=== PATIENT | male | born 1965 | race Caucasian/White ===

== ENCOUNTER 2025-05-11 00:30 | Emergency (ER) | payer OTHER ==
[~2025-05-11] VITALS: Ht 175.3 cm; Wt 79.4 kg
== END 2025-05-11 01:00 | disposition home or self-care (01) ==
LOC: ER 00:30
DX: Z76.0 Encounter for issue of repeat prescription (principal); I10 Essential (primary) hypertension
CPT/HCPCS: 99281

== ENCOUNTER 2025-05-12 23:01 | Emergency (ER) | payer OTHER ==
[~2025-05-12] VITALS: Ht 175.3 cm; Wt 78.0 kg
[2025-05-13] MEDS ORDERED: CARVEDILOL6.25 MG PO ×2 (00:07→00:14)
[2025-05-13] MEDS ORDERED: LOSARTAN POTASS25 M2 PO ×2 (00:10→00:14)
[2025-05-13] MEDS ORDERED: JANTOVEN6 MG PO ×2 (00:10→00:14)
[2025-05-13] MEDS ORDERED: ROSUVASTATIN CA40 MG PO ×2 (00:11→00:14)
[2025-05-13] MEDS ORDERED: METFORMIN HCL500 M2 PO ×2 (00:13→00:14)
[2025-05-13] MEDS ORDERED: AMOCLA875 PO (00:14)
== END 2025-05-13 00:38 | disposition home or self-care (01) ==
LOC: ER 23:01
DX: Z76.0 Encounter for issue of repeat prescription (principal); S51.852D Open bite of left forearm, subsequent encounter; H53.9 Unspecified visual disturbance; I10 Essential (primary) hypertension; E11.9 Type 2 diabetes mellitus without complications; W54.0XXD Bitten by dog, subsequent encounter; Z96.649 Presence of unspecified artificial hip joint; Z86.73 Personal history of transient ischemic attack (TIA), and cerebral infarction without residual deficits; Z95.2 Presence of prosthetic heart valve
CPT/HCPCS: 99283

== ENCOUNTER 2025-05-28 02:21 | Emergency (ER) | payer OTHER ==
[~2025-05-28] VITALS: Ht 175.3 cm; Wt 77.1 kg
[~2025-05-28 02:21] MED LIST: AMOCLA875 PO; CARVEDILOL6.25 MG PO; CEPH500 PO; Coreg6.25 MG PO; Crestor40 MG PO; JANTOVEN6 MG PO; LOSA25 PO; LOSARTAN POTASS25 M2 PO; METF500 PO; METFORMIN HCL500 M2 PO; ROSUVASTATIN CA40 MG PO; WARF6 PO
[2025-05-28] MEDS ORDERED: ALLOPURINOL100 M1 PO (02:42)
[2025-05-28] MEDS ORDERED: ACYC200 PO (02:42)
[2025-05-28] MEDS ORDERED: PANTOPRAZOLE SO40 M2 PO (02:43)
[2025-05-28] MEDS ORDERED: TRAZ50 PO (02:43)
[2025-05-28] MEDS ORDERED: FENOFIBRATE145 MG PO (02:43)
[2025-05-28] MEDS ORDERED: TAMSULOSIN HCL0.4 M1 PO (02:43)
[2025-05-28] MEDS ORDERED: NEURONTIN300 MG PO (02:43)
[2025-05-28] MEDS ORDERED: PIOGLITAZONE HC15 MG PO (02:44)
[2025-05-28] MEDS ORDERED: EZETIMIBE10 M6 PO (02:44)
== END 2025-05-28 04:30 | disposition home or self-care (01) ==
LOC: ER 02:21
DX: S00.12XA Contusion of left eyelid and periocular area, initial encounter (principal); S00.11XA Contusion of right eyelid and periocular area, initial encounter; S00.81XA Abrasion of other part of head, initial encounter; S00.31XA Abrasion of nose, initial encounter; E11.9 Type 2 diabetes mellitus without complications; I10 Essential (primary) hypertension; E78.5 Hyperlipidemia, unspecified; Z95.2 Presence of prosthetic heart valve; Z96.649 Presence of unspecified artificial hip joint; Z86.73 Personal history of transient ischemic attack (TIA), and cerebral infarction without residual deficits; Z88.8 Allergy status to other drugs, medicaments and biological substances; Z79.01 Long term (current) use of anticoagulants; Z79.84 Long term (current) use of oral hypoglycemic drugs; Z79.899 Other long term (current) drug therapy; W18.30XA Fall on same level, unspecified, initial encounter
CPT/HCPCS: 70450; 70486; 99284-25; A9270

== ENCOUNTER 2025-05-28 06:27 | Emergency (ER) | payer OTHER ==
[~2025-05-28] VITALS: Ht 175.3 cm; Wt 72.6 kg
[~2025-05-28 06:27] MED LIST changes: +ACYC200 PO; +ALLOPURINOL100 M1 PO; +EZETIMIBE10 M6 PO; +FENOFIBRATE145 MG PO; +NEURONTIN300 MG PO; +PANTOPRAZOLE SO40 M2 PO; +PIOGLITAZONE HC15 MG PO; +TAMSULOSIN HCL0.4 M1 PO; +TRAZ50 PO
== END 2025-05-28 09:44 | disposition home or self-care (01) ==
LOC: ER 06:27
DX: S05.11XA Contusion of eyeball and orbital tissues, right eye, initial encounter (principal); S30.810A Abrasion of lower back and pelvis, initial encounter; E11.9 Type 2 diabetes mellitus without complications; I10 Essential (primary) hypertension; Z86.73 Personal history of transient ischemic attack (TIA), and cerebral infarction without residual deficits; Y04.8XXA Assault by other bodily force, initial encounter; Z79.01 Long term (current) use of anticoagulants; Z79.899 Other long term (current) drug therapy; Z88.8 Allergy status to other drugs, medicaments and biological substances
CPT/HCPCS: 70450; 70486; 71046; 82947; 99284-25

== ENCOUNTER 2025-05-29 07:53 | Emergency (ER) | payer OTHER ==
[~2025-05-29] VITALS: Ht 175.3 cm; Wt 81.7 kg
== END 2025-05-29 13:30 | disposition home or self-care (01) ==
LOC: ER 07:53
DX: T40.411A Poisoning by fentanyl or fentanyl analogs, accidental (unintentional), initial encounter (principal); E11.9 Type 2 diabetes mellitus without complications; I10 Essential (primary) hypertension; Z86.73 Personal history of transient ischemic attack (TIA), and cerebral infarction without residual deficits; Z59.89 Other problems related to housing and economic circumstances; Z79.899 Other long term (current) drug therapy
CPT/HCPCS: 99284

== ENCOUNTER 2025-05-29 20:06 | Inpatient (IN) | payer OTHER ==
[~2025-05-29] VITALS: Ht 175.3 cm; Wt 81.7 kg
[2025-05-29 21:21] LABS: BASOPHILS ABSOLUTE AUTO 0.05 K/mm3 (0.00-0.23); BASOPHILS PERCENT AUTO 1 % (0-2); EOSINOPHILS ABSOLUTE AUTO 0.28 K/mm3 (0.00-0.68); EOSINOPHILS PERCENT AUTO 4 % (0-6); Hematocrit 33.1 % (37.0-53.0); Hemoglobin 11.0 g/dL (13.5-17.5); IMMATURE GRAN ABSOLUTE AUTO 0.02 K/mm3 (0.00-0.10); IMMATURE GRAN PERCENT AUTO 0 % (0-1); LYMPHOCYTES ABSOLUTE AUTO 1.13 K/mm3 (0.84-5.20); LYMPHOCYTES PERCENT AUTO 15 % (21-46); MONOCYTES ABSOLUTE AUTO 0.45 K/mm3 (0.16-1.47); MONOCYTES PERCENT AUTO 6 % (4-13); Mean Corpuscular HGB Conc 33.2 g/dL (31.5-36.5); Mean Corpuscular Volume 90 fL (80-100); NEUTROPHILS ABSOLUTE AUTO 5.48 K/mm3 (1.96-9.15); NEUTROPHILS PERCENT AUTO 74 % (41-73); NRBC ABSOLUTE 0.00 K/mm3 (0.00-0.02); NRBC Auto 0.0 /100 WBC (0.0-0.2); Platelet Count 273 K/mm3 (150-400); RDW Coefficient Variation 13.7 % (11.7-14.2); RDW Standard Deviation 45.6 fL (35.1-46.3)
[2025-05-29 21:38] LABS: Prothrombin Time Results 10.7 Sec (9.7-11.5)
[2025-05-29 21:41] LABS: Alanine Aminotransfer (ALT/SGP 47.0 U/L (12-78); Albumin, Blood 3.2 g/dL (3.4-5.0); Albumin/Globulin Ratio 1.0 (0.8-1.8); Anion Gap 8.0 mmol/L (3-11); Aspartate Aminotrans (AST/SGOT 37.0 U/L (12-37); Bilirubin, Total 0.2 mg/dL (0.1-1.0); Blood Urea Nitrogen 25.0 mg/dL (8-24); CO2, Blood 25.0 mmol/L (21-32); Calcium, Blood 8.9 mg/dL (8.5-10.1); Chloride, Blood 108.0 mmol/L (98-108); Creatinine, Blood 0.74 mg/dL (0.60-1.20); Globulin, Blood 3.3 g/dL (2.2-4.0); Glucose, Blood 163.0 mg/dL (70-99); Potassium, Blood 4.2 mmol/L (3.5-5.5); Sodium, Blood 137.0 mmol/L (136-145); Total Protein, Blood 6.5 g/dL (6.4-8.2)
[2025-05-30] VITALS (7 sets, daily range): BP systolic 135–169; BP diastolic 60–107
[2025-05-30] MEDS ORDERED: FLU VACC TS2025-26(6MOS UP)/PF 45 MCG/0.5 ML SYRINGE IM SCH (01:45)
[2025-05-30 05:01] LABS: Hematocrit 35.8 % (37.0-53.0); Hemoglobin 11.7 g/dL (13.5-17.5)
[2025-05-30 05:06] LABS: U Amphetamine Screen Not Detected; U Barbiturate Screen Not Detected; U Benzodiazapine Screen Not Detected; U Buprenorphine Screen Not Detected; U Cannabinoids Screen DETECTED; U Cocaine Screen Not Detected; U Methadone Screen Not Detected; U Methamphetamine Screen Not Detected; U Opiates Screen Not Detected; U Oxycodone Screen Not Detected; U Phencyclidine Screen Not Detected
[2025-05-30 06:20] LABS: CHOL/HDL RATIO 4.1; Cholesterol 158 mg/dL (50-200); Ferritin, Serum 35 ng/mL (26-388); HDL Cholesterol 39 mg/dL (>39); LDL/HDL RATIO 2.2; Low Density Lipoprotein Chol 86 mg/dL (0-110); Magnesium, Blood 2.2 mg/dL (1.6-2.4); Total Iron Binding Capacity 275 ug/dL (250-450); Triglycerides 167 mg/dL (30-160); Very Low Density Lipoprot Chol 33 mg/dL (6-32)
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
[2025-05-30 09:00] LABS: Hematocrit 37.9 % (37.0-53.0); Hemoglobin 12.3 g/dL (13.5-17.5); Platelet Count 250 K/mm3 (150-400)
[2025-05-30 09:17] LABS: Anti-Xa UFH, PHA Monitoring <0.10 IU/mL; Prothrombin Time Results 10.9 Sec (9.7-11.5)
--- NOTE | 2025-05-30 09:29 | NUR ---
UPDATE: PT HEADING TO IMAGING TO IMAGING FOR FIRST PORTION OF STRESS TEST VIA W/C.
[2025-05-30] MEDS ORDERED: Heparin Sodium 5000 Units/ML 1ML MDV IV ONE ×2 (10:00→19:20)
[2025-05-30] MEDS ORDERED: Heparin Sodium,Porcine/0.5 NS 500 ML IV SCH (10:00)
--- NOTE | 2025-05-30 15:09 | NUR ---
UPDATE: CALLED MD TO DISCUSS NEW COUMADIN ORDER. PER DR MACDONALD, PT IS TO STAY ON HEPARIN GTT, AND START THE COUMADIN.
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
[2025-05-31 00:06] VITALS: BP 148/83
[2025-05-31 01:06] LABS: Hematocrit 33.9 % (37.0-53.0); Hemoglobin 11.2 g/dL (13.5-17.5); Platelet Count 233 K/mm3 (150-400)
[2025-05-31 01:25] LABS: Prothrombin Time Results 11.0 Sec (9.7-11.5)
[2025-05-31] MEDS ORDERED: Dose Adjust by Pharmacy XX STA ×4 (01:59→21:33)
[2025-05-31 04:14] VITALS: BP 168/82
--- NOTE | 2025-05-31 06:45 | NUR ---
SHIFT SUMMARY: PT IS A&OX3. VSS ON RA. SR 60'S-70'S. C/O PAIN TO HIS FOREHEAD AND HIS HIP, MEDICATED WITH PRN TYLENOL WITH LITTLE RELIEF. HEPARIN GTT INFUSING PER ORDER. PT TOLERATING A HEART HEALTHY DIET WITH A ROBUST APPETITE. PT FREQUENTLY CALLING FOR MULTIPLE REQUESTS. PT REQUESTED TO GO OUTSIDE AND SMOKE, THIS RN INFORMED HIM IF HE LEFT THE HOSPITAL, HE WOULD HAVE TO COME BACK THROUGH THE ER A NEW PATIENT. PT THEN REQUESTING HIS NICORETTE GUM Q2 HOURS. USED URINAL INDEPENDENTLY IN BED. VOIDING LARGE AMOUNTS OF CLEAR, PALE YELLOW URINE. PT HAD AN INCONTINENT VOID AND LARGE LOOSE BM IN HIS BED EARLY THIS MORNING. BED IN LOWEST POSITION, CALL LIGHT WITHIN REACH.
[2025-05-31] MEDS ORDERED: CARV6.25 PO (08:08)
[2025-05-31] MEDS ORDERED: LOSA25 PO (08:11)
[2025-05-31] MEDS ORDERED: METF500 PO (08:13)
[2025-05-31] MEDS ORDERED: Crestor40 MG PO (08:14)
[2025-05-31 08:16] VITALS: BP 149/75
[2025-05-31] MEDS ORDERED: WARF6 PO (08:16)
[2025-05-31] MEDS ORDERED: VITAMIN B122500 MC1 PO (08:18)
[2025-05-31] MEDS ORDERED: VITAMIN D350 MC3 PO (08:18)
[2025-05-31] MEDS ORDERED: LION'S MANE PO (08:20)
[2025-05-31 10:12] VITALS: BP 150/93
--- NOTE | 2025-05-31 10:13 | NUR ---
PT TRANSFER: GAVE REPORT TO MEDICAL RN, TRANSFERRED PT VIA W/C. ALL BELONGINGS WITH PT. VSS.
--- NOTE | 2025-05-31 11:06 | NUR ---
LIGHTERS AND FLINT IN LOCKED DRAWER- PT BELONGINGS TRANSFERED WITH THE PT UP FROM [facility]. PT BEGAN RUMAGING THROUGH HIS BELONGINGS, THIS RN ASKED IF HE HAD ANY LIGHTERS, HE STATED "YEAH SURE." THIS RN ASKED IF HE COULD PULL THEM OUT TO BE LOCKED UP FOR SAFETY. PT AGREED. TWO LIGHTERS AND A FLINT WELL SOME CHANGE ARE IN A PAPER BAGLABELED WITH A PT LABEL LIGHTERS AND FLINT.
--- NOTE | 2025-05-31 12:26 | NUR ---
PT REQUESTED TO SEE DR PRASAD- PT TOLD BREAK RN THAT HE HOPED WE HAD A CALL IN TO DR PRASAD BECAUSE HE NEEDS TO SEE HIM, HE STATED ZARA THE DR WANTED TO SEE HIM WELL. CALLED AND LET HIM KNOW OF THE PT REQUEST. HE WILL COME UP IN ABOUT AN HOUR TO SEE THE PT AGAIN.
[2025-05-31] MEDS ORDERED: Heparin Sodium 5000 Units/ML 1ML MDV IV ONE (14:25)
[2025-05-31 15:46] VITALS: BP 164/81
[2025-05-31] MEDS ORDERED: ATOMOXETINE HCL40 M3 PO (15:49)
--- NOTE | 2025-05-31 16:05 | NUR ---
SHIFT SUMMARY- PT ALERT AND ORIENTED X2-3. HE ANSWERS ORIENTATION QUESTIONS APPROPRIATELY BUT THEN HE SAYS THINGS THAT ARE TOTALLY OUT OF CONTEXT. HE SPEAKS WITH PRESSURED SPEECH THAT IS PEPPERED WITH FACTS AND SOME OTHER THINGS THAT ARE NOT ABLE TO BE VERIFIED. HIS HEALTH HISTORY IS INCOMPLETE. IF YOU ASK HIM ABOUT HIS HEALTH HE WILL START TO TALK ABOUT HIS MEDICAL Hx BUT THEN WILL GO OFF ON A TANGENT THAT LEADS TO ANOTHER TNAGENT AND ANOTHER. PT COMES OUT AND ASKS STAFF TO ASSIST HIME WITH JOB APPLICATIONS OR CREDIT APPLICATIONS, MOST RECENTLY HE CAM OUT AND TOLD STAFF HE NEEDS TO GO TO [facility] TO GET HIS METHADONE DOSE. WHEN ASKED WHAT HIS DOSE IS HE STATES "I DON'T KNOW, I'VE NEVER HAD IT." STAFF EXPLAINED HE NEEDED TO CALL [facility] AND THEY WILL CALL WITH THE DOSING, BUT HE HAS TO BE SEEN BY THEM. HE SAYS HE WAS ALREADY SEEN BY THEM. PT BP WAS ELEVATED, STAFF SUGESTED STAYINGIN BED WITH HIS FEET UP FOR A WHILE AND TRYING TO RELAX, RATHER THAN CHASING ALL THE STAFF AROUND THE HALLS TO ASK FOR HELP WITH A MULTITUDE OF THINGS. HE IS CURRENTLY IN BED, CALL LIGHT IN REACH, WILL MEDICATE SHORTLY WITH PO BP MEDS. HEPARIN DRIP RATE WAS INCREASED BY PHARMACY AND A BOLUS WAS ORDERED. PT RECIEVED BOTH. DRIP IS STILL INFUSING. WILL CTM AND PASS ON TO NIGHT RN IN BEDSIDE REPORT.
[2025-05-31] MEDS ORDERED: MetFORMIN HCl 500 mg PO SCH (17:00)
[2025-05-31 19:38] VITALS: BP 147/83
[2025-06-01 03:21] LABS: BASOPHILS ABSOLUTE AUTO 0.05 K/mm3 (0.00-0.23); BASOPHILS PERCENT AUTO 1 % (0-2); EOSINOPHILS ABSOLUTE AUTO 0.54 K/mm3 (0.00-0.68); EOSINOPHILS PERCENT AUTO 8 % (0-6); Hematocrit 36.3 % (37.0-53.0); Hemoglobin 11.7 g/dL (13.5-17.5); IMMATURE GRAN ABSOLUTE AUTO 0.02 K/mm3 (0.00-0.10); IMMATURE GRAN PERCENT AUTO 0 % (0-1); LYMPHOCYTES ABSOLUTE AUTO 1.51 K/mm3 (0.84-5.20); LYMPHOCYTES PERCENT AUTO 22 % (21-46); MONOCYTES ABSOLUTE AUTO 0.43 K/mm3 (0.16-1.47); MONOCYTES PERCENT AUTO 6 % (4-13); Mean Corpuscular HGB Conc 32.2 g/dL (31.5-36.5); Mean Corpuscular Volume 92 fL (80-100); NEUTROPHILS ABSOLUTE AUTO 4.47 K/mm3 (1.96-9.15); NEUTROPHILS PERCENT AUTO 64 % (41-73); NRBC ABSOLUTE 0.00 K/mm3 (0.00-0.02); NRBC Auto 0.0 /100 WBC (0.0-0.2); Platelet Count 243 K/mm3 (150-400); RDW Coefficient Variation 13.8 % (11.7-14.2); RDW Standard Deviation 46.6 fL (35.1-46.3)
[2025-06-01 03:35] LABS: Prothrombin Time Results 11.5 Sec (9.7-11.5)
[2025-06-01 03:39] LABS: Alanine Aminotransfer (ALT/SGP 45.0 U/L (12-78); Albumin, Blood 3.0 g/dL (3.4-5.0); Albumin/Globulin Ratio 0.9 (0.8-1.8); Anion Gap 9.0 mmol/L (3-11); Aspartate Aminotrans (AST/SGOT 32.0 U/L (12-37); Bilirubin, Total 0.3 mg/dL (0.1-1.0); Blood Urea Nitrogen 10.0 mg/dL (8-24); CO2, Blood 23.0 mmol/L (21-32); Calcium, Blood 9.1 mg/dL (8.5-10.1); Chloride, Blood 110.0 mmol/L (98-108); Creatinine, Blood 0.72 mg/dL (0.60-1.20); Globulin, Blood 3.5 g/dL (2.2-4.0); Glucose, Blood 109.0 mg/dL (70-99); Potassium, Blood 3.9 mmol/L (3.5-5.5); Sodium, Blood 138.0 mmol/L (136-145); Total Protein, Blood 6.5 g/dL (6.4-8.2)
[2025-06-01 03:50] VITALS: BP 158/93
--- NOTE | 2025-06-01 06:49 | NUR ---
SHIFT SUMMARY; PATIENT HAD TO BE REMINDED TO STAY IN HIS ROOM AND TO STOP TALKING TO ANYONE HE PASSED BY. DID SLEEP IN 1 LONG INTERVAL. HEPARIN INFUSING AT 17U/KG OR 27.9 ML ON PUMP. NO CHANGES ORDERED FROM PHARMACY.
[2025-06-01 07:30] VITALS: BP 157/90
[2025-06-01] MEDS ORDERED: Enoxaparin 80 MG/0.8 ML SYR SC SCH (08:00)
[2025-06-01 10:21] VITALS: BP 161/90
[2025-06-01] MEDS ORDERED: Heparin Sodium 5000 Units/ML 1ML MDV IV ONE (11:00)
[2025-06-01] MEDS ORDERED: Atomoxetine HCL 40 MG Cap PO SCH (11:00)
[2025-06-01 16:47] VITALS: BP 152/84
[2025-06-01] MEDS ORDERED: Enoxaparin 80 MG/0.8 ML SYR SC ONE (18:00)
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
[2025-06-01 19:57] VITALS: BP 125/77
[2025-06-02 05:27] VITALS: BP 167/104
[2025-06-02 05:27] LABS: BASOPHILS ABSOLUTE AUTO 0.03 K/mm3 (0.00-0.23); BASOPHILS PERCENT AUTO 1 % (0-2); EOSINOPHILS ABSOLUTE AUTO 0.48 K/mm3 (0.00-0.68); EOSINOPHILS PERCENT AUTO 8 % (0-6); Hematocrit 35.5 % (37.0-53.0); Hemoglobin 11.7 g/dL (13.5-17.5); IMMATURE GRAN ABSOLUTE AUTO 0.01 K/mm3 (0.00-0.10); IMMATURE GRAN PERCENT AUTO 0 % (0-1); LYMPHOCYTES ABSOLUTE AUTO 1.31 K/mm3 (0.84-5.20); LYMPHOCYTES PERCENT AUTO 22 % (21-46); MONOCYTES ABSOLUTE AUTO 0.45 K/mm3 (0.16-1.47); MONOCYTES PERCENT AUTO 8 % (4-13); Mean Corpuscular HGB Conc 33.0 g/dL (31.5-36.5); Mean Corpuscular Volume 91 fL (80-100); NEUTROPHILS ABSOLUTE AUTO 3.64 K/mm3 (1.96-9.15); NEUTROPHILS PERCENT AUTO 62 % (41-73); NRBC ABSOLUTE 0.00 K/mm3 (0.00-0.02); NRBC Auto 0.0 /100 WBC (0.0-0.2); Platelet Count 236 K/mm3 (150-400); RDW Coefficient Variation 13.7 % (11.7-14.2); RDW Standard Deviation 46.0 fL (35.1-46.3)
[2025-06-02 05:40] LABS: Prothrombin Time Results 12.2 Sec (9.7-11.5)
--- NOTE | 2025-06-02 06:10 | NUR ---
SHIFT SUMMARY A&OX3-4, NO FURTHER CHEST PAIN REPORTED. OCCASIONALLY DISORIENTED TO SITUATION WITH SOME GRAND DELUSIONS. SHOWERING INDEPENDENTLY AT BEGINNING OF THIS EVENING. TRANSITIONED OFF HEPARIN, BRIDGING TO COUMADIN PENDING THERAPEUTIC INR. LFA IV REMOVED. RFA REMAINS PATENT. PT WITH TANGENTIAL & PROFANE SPEECH, FREQUENTLY EXITING ROOM, WANDERING DEPARTMENT, LOOKING IN OTHER PATIENTS' ROOMS, AND REQUIRING TO BE REDIRECTED BACK TO HIS ROOM. SOMEWHAT DIFFICULT TO REDIRECT.
[2025-06-02 06:15] LABS: Alanine Aminotransfer (ALT/SGP 43.0 U/L (12-78); Albumin, Blood 3.0 g/dL (3.4-5.0); Albumin/Globulin Ratio 0.8 (0.8-1.8); Anion Gap 8.0 mmol/L (3-11); Aspartate Aminotrans (AST/SGOT 27.0 U/L (12-37); Bilirubin, Total 0.2 mg/dL (0.1-1.0); Blood Urea Nitrogen 12.0 mg/dL (8-24); CO2, Blood 24.0 mmol/L (21-32); Calcium, Blood 9.1 mg/dL (8.5-10.1); Chloride, Blood 109.0 mmol/L (98-108); Creatinine, Blood 0.73 mg/dL (0.60-1.20); Globulin, Blood 3.6 g/dL (2.2-4.0); Glucose, Blood 139.0 mg/dL (70-99); Potassium, Blood 3.8 mmol/L (3.5-5.5); Sodium, Blood 137.0 mmol/L (136-145); Total Protein, Blood 6.6 g/dL (6.4-8.2)
[2025-06-02 07:51] VITALS: BP 211/109
[2025-06-02] MEDS ORDERED: Enoxaparin 80 MG/0.8 ML SYR SC SCH (08:00)
[2025-06-02] MEDS ORDERED: Atomoxetine HCL 40 MG Cap PO SCH (09:00)
[2025-06-02] MEDS ORDERED: Ondansetron 4 MG SoluTab MM PRN (10:45)
[2025-06-02 10:58] VITALS: BP 144/86
[2025-06-02] MEDS ORDERED: ENOX80I SC (15:47)
--- NOTE | 2025-06-02 16:03 | NUR ---
SHIFT/DISCHARGE SUMMARY: PATIENT A/OX3-4, ANXIOUS AT TIMES, FOLLOWING COMMANDS AND COOPERATIVE c CARE. PATIENT DENIES CP/PRESSURE, SOB, N/V AND DIZZINESS. PATIENT RECEIVED SCHEDULED MEDS PER EMAR. VITAL SIGNS REVIEWED. PATIENT HAS GOOD APPETITE, CONTINENT OF BAB AND INDEPENDENT IN ROOM. PIV DC'D. DR. PRASAD SPOKE TO PATIENT PRIOR TO DISCHARGE c PLAN OF CARE OUTPT. PATIENT VERBALIZED UNDERSTANDING AND ALL HIS QUESTIONS WERE ANSWERED. PATIENT DISCHARGE HOME. DISCHARGE INSTRUCTIONS PACKET GIVEN TO PATIENT. PATIENT EDUCATED ON ADMITTING DX'S OF CP, S/S, TX, NEW RX AND TO F/U AT [facility]. PATIENT VERBALIZED UNDERSTANDING AND NO FURTHER QUESTIONS. RX WAS FAXED TO PATIENT PREFERRED PHARMACY-[facility]. ALL PERSONAL BELONGINGS WERE SENT c PATIENT. PATIENT LEFT THE ROOM AT 1703, TRANSPORTED VIA WC BY SASHA PRIETO TO PATIENT ENTRANCE, WERE HIS RIDE [facility] BY ASSOCIATE RESEARCH SCIENTIST.
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
== END 2025-06-02 16:07 | disposition home or self-care (01) | DRG 897 ==
LOC: ER 20:06 → ERHOLD 20:07 → PCU 20:07 → ER 20:07 → PCU 20:07 → ERHOLD 05-30 04:32 → PCU 05-30 04:32 → MEDS 05-31 10:08
PROVIDERS: Family Medicine; Hospitalist; Student in an Organized Health Care Education/Training Program; ADMIT Internal Medicine
DX: F15.10 Other stimulant abuse, uncomplicated (principal); R07.89 Other chest pain; I25.10 Atherosclerotic heart disease of native coronary artery without angina pectoris; E11.9 Type 2 diabetes mellitus without complications; I10 Essential (primary) hypertension; Z96.649 Presence of unspecified artificial hip joint; E78.5 Hyperlipidemia, unspecified; D50.9 Iron deficiency anemia, unspecified; B02.9 Zoster without complications; M10.9 Gout, unspecified; M54.2 Cervicalgia; F90.9 Attention-deficit hyperactivity disorder, unspecified type; Z79.84 Long term (current) use of oral hypoglycemic drugs; Z79.899 Other long term (current) drug therapy; Z79.01 Long term (current) use of anticoagulants; Z86.73 Personal history of transient ischemic attack (TIA), and cerebral infarction without residual deficits; Z90.89 Acquired absence of other organs; Z88.8 Allergy status to other drugs, medicaments and biological substances; Z95.1 Presence of aortocoronary bypass graft; Z95.2 Presence of prosthetic heart valve; Z23 Encounter for immunization
CPT/HCPCS: 36415; 70450; 71046; 78452; 80053; 80061; 82607; 82728; 82746; 83036; 83540; 83550; 83690; 83735; 84484; 85014; 85018; 85025; 85049; 85520; 85610; 85730; 93005; 93010; 93017; 93306; 96374; 99285-25; A9270; A9500; G0378; J0706; J1644; J1650; J2785

== ENCOUNTER 2025-06-06 11:05 | Emergency (ER) | payer OTHER ==
[~2025-06-06] VITALS: Ht 175.3 cm; Wt 76.4 kg
[~2025-06-06 11:05] MED LIST changes: +ATOMOXETINE HCL40 M3 PO; +CARV6.25 PO; +ENOX80I SC; +LION'S MANE PO; +VITAMIN B122500 MC1 PO; +VITAMIN D350 MC3 PO
[2025-06-06 12:24] LABS: BASOPHILS ABSOLUTE AUTO 0.08 K/mm3 (0.00-0.23); BASOPHILS PERCENT AUTO 1 % (0-2); EOSINOPHILS ABSOLUTE AUTO 0.19 K/mm3 (0.00-0.68); EOSINOPHILS PERCENT AUTO 2 % (0-6); Hematocrit 37.8 % (37.0-53.0); Hemoglobin 12.8 g/dL (13.5-17.5); IMMATURE GRAN ABSOLUTE AUTO 0.01 K/mm3 (0.00-0.10); IMMATURE GRAN PERCENT AUTO 0 % (0-1); LYMPHOCYTES ABSOLUTE AUTO 1.40 K/mm3 (0.84-5.20); LYMPHOCYTES PERCENT AUTO 16 % (21-46); MONOCYTES ABSOLUTE AUTO 0.78 K/mm3 (0.16-1.47); MONOCYTES PERCENT AUTO 9 % (4-13); Mean Corpuscular HGB Conc 33.9 g/dL (31.5-36.5); Mean Corpuscular Volume 89 fL (80-100); NEUTROPHILS ABSOLUTE AUTO 6.16 K/mm3 (1.96-9.15); NEUTROPHILS PERCENT AUTO 72 % (41-73); NRBC ABSOLUTE 0.00 K/mm3 (0.00-0.02); NRBC Auto 0.0 /100 WBC (0.0-0.2); Platelet Count 328 K/mm3 (150-400); RDW Coefficient Variation 13.6 % (11.7-14.2); RDW Standard Deviation 44.3 fL (35.1-46.3)
[2025-06-06 12:44] LABS: Alanine Aminotransfer (ALT/SGP 54.0 U/L (12-78); Albumin, Blood 3.8 g/dL (3.4-5.0); Albumin/Globulin Ratio 1.0 (0.8-1.8); Anion Gap 10.0 mmol/L (3-11); Aspartate Aminotrans (AST/SGOT 60.0 U/L (12-37); Bilirubin, Total 0.8 mg/dL (0.1-1.0); Blood Urea Nitrogen 30.0 mg/dL (8-24); CO2, Blood 23.0 mmol/L (21-32); Calcium, Blood 9.1 mg/dL (8.5-10.1); Chloride, Blood 107.0 mmol/L (98-108); Creatinine, Blood 0.99 mg/dL (0.60-1.20); Globulin, Blood 3.9 g/dL (2.2-4.0); Glucose, Blood 147.0 mg/dL (70-99); Potassium, Blood 3.6 mmol/L (3.5-5.5); Sodium, Blood 136.0 mmol/L (136-145); Total Protein, Blood 7.7 g/dL (6.4-8.2)
[2025-06-06 14:17] LABS: Prothrombin Time Results 11.7 Sec (9.7-11.5)
== END 2025-06-06 15:36 | disposition home or self-care (01) ==
LOC: ER 11:05
PROVIDERS: Student in an Organized Health Care Education/Training Program
DX: Z48.02 Encounter for removal of sutures (principal); M79.672 Pain in left foot; M79.671 Pain in right foot; R45.1 Restlessness and agitation; F91.9 Conduct disorder, unspecified; E11.9 Type 2 diabetes mellitus without complications; I10 Essential (primary) hypertension; Z59.00 Homelessness unspecified; Z88.8 Allergy status to other drugs, medicaments and biological substances; Z79.84 Long term (current) use of oral hypoglycemic drugs; Z79.899 Other long term (current) drug therapy
CPT/HCPCS: 80053; 85025; 85610; 85730; 93005; 93010; 99283-25; A9270

== ENCOUNTER 2025-07-18 23:44 | Inpatient (IN) | payer OTHER ==
[~2025-07-18] VITALS: Ht 177.8 cm; Wt 73.9 kg
[2025-07-18] MEDS ORDERED: FentaNYL Citrate 50 MCG/ML 2 ML Injection IV PRN (23:55)
[2025-07-19 00:11] LABS: BASOPHILS ABSOLUTE AUTO 0.06 K/mm3 (0.00-0.23); BASOPHILS PERCENT AUTO 1 % (0-2); EOSINOPHILS ABSOLUTE AUTO 0.21 K/mm3 (0.00-0.68); EOSINOPHILS PERCENT AUTO 3 % (0-6); Hematocrit 34.9 % (37.0-53.0); Hemoglobin 11.9 g/dL (13.5-17.5); IMMATURE GRAN ABSOLUTE AUTO 0.03 K/mm3 (0.00-0.10); IMMATURE GRAN PERCENT AUTO 1 % (0-1); LYMPHOCYTES ABSOLUTE AUTO 0.93 K/mm3 (0.84-5.20); LYMPHOCYTES PERCENT AUTO 14 % (21-46); MONOCYTES ABSOLUTE AUTO 0.45 K/mm3 (0.16-1.47); MONOCYTES PERCENT AUTO 7 % (4-13); Mean Corpuscular HGB Conc 34.1 g/dL (31.5-36.5); Mean Corpuscular Volume 87 fL (80-100); NEUTROPHILS ABSOLUTE AUTO 4.98 K/mm3 (1.96-9.15); NEUTROPHILS PERCENT AUTO 75 % (41-73); NRBC ABSOLUTE 0.00 K/mm3 (0.00-0.02); NRBC Auto 0.0 /100 WBC (0.0-0.2); Platelet Count 215 K/mm3 (150-400); RDW Coefficient Variation 13.4 % (11.7-14.2); RDW Standard Deviation 43.1 fL (35.1-46.3)
[2025-07-19 00:31] LABS: Prothrombin Time Results 11.7 Sec (9.7-11.5)
[2025-07-19 00:39] LABS: Alanine Aminotransfer (ALT/SGP 44.0 U/L (12-78); Albumin, Blood 4.4 g/dL (3.4-5.0); Albumin/Globulin Ratio 1.1 (0.8-1.8); Anion Gap 11.0 mmol/L (3-11); Aspartate Aminotrans (AST/SGOT 69.0 U/L (12-37); Bilirubin, Total 1.0 mg/dL (0.1-1.0); Blood Urea Nitrogen 21.0 mg/dL (8-24); CO2, Blood 22.0 mmol/L (21-32); Calcium, Blood 9.4 mg/dL (8.5-10.1); Chloride, Blood 106.0 mmol/L (98-108); Creatinine, Blood 1.04 mg/dL (0.60-1.20); Globulin, Blood 3.9 g/dL (2.2-4.0); Glucose, Blood 101.0 mg/dL (70-99); Potassium, Blood 3.8 mmol/L (3.5-5.5); Sodium, Blood 135.0 mmol/L (136-145); Total Protein, Blood 8.3 g/dL (6.4-8.2)
[2025-07-19] MEDS ORDERED: NS 1,000 ML IV SCH ×2 (01:45→02:40)
[2025-07-19] MEDS ORDERED: FLU VACC TS2025-26(6MOS UP)/PF 45 MCG/0.5 ML SYRINGE IM SCH (02:40)
[2025-07-19] MEDS ORDERED: FentaNYL Citrate 50 MCG/ML 2 ML Injection IV PRN (02:40)
[2025-07-19] MEDS ORDERED: Ondansetron HCl 2 MG / ML 2ML Vial IV PRN (02:40)
[2025-07-19] MEDS ORDERED: CeFAZolin Sodium 1,000 MG in NS 50 ML IV SCH (03:57)
[2025-07-19 04:46] VITALS: BP 168/98
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
[2025-07-19 06:37] LABS: BASOPHILS ABSOLUTE AUTO 0.06 K/mm3 (0.00-0.23); BASOPHILS PERCENT AUTO 1 % (0-2); EOSINOPHILS ABSOLUTE AUTO 0.24 K/mm3 (0.00-0.68); EOSINOPHILS PERCENT AUTO 4 % (0-6); Hematocrit 33.3 % (37.0-53.0); Hemoglobin 11.3 g/dL (13.5-17.5); IMMATURE GRAN ABSOLUTE AUTO 0.01 K/mm3 (0.00-0.10); IMMATURE GRAN PERCENT AUTO 0 % (0-1); LYMPHOCYTES ABSOLUTE AUTO 0.92 K/mm3 (0.84-5.20); LYMPHOCYTES PERCENT AUTO 15 % (21-46); MONOCYTES ABSOLUTE AUTO 0.55 K/mm3 (0.16-1.47); MONOCYTES PERCENT AUTO 9 % (4-13); Mean Corpuscular HGB Conc 33.9 g/dL (31.5-36.5); Mean Corpuscular Volume 88 fL (80-100); NEUTROPHILS ABSOLUTE AUTO 4.20 K/mm3 (1.96-9.15); NEUTROPHILS PERCENT AUTO 70 % (41-73); NRBC ABSOLUTE 0.00 K/mm3 (0.00-0.02); NRBC Auto 0.0 /100 WBC (0.0-0.2); Platelet Count 193 K/mm3 (150-400); RDW Coefficient Variation 13.4 % (11.7-14.2); RDW Standard Deviation 43.8 fL (35.1-46.3)
[2025-07-19 06:41] LABS: U Amphetamine Screen DETECTED; U Barbiturate Screen Not Detected; U Benzodiazapine Screen Not Detected; U Buprenorphine Screen Not Detected; U Cannabinoids Screen Not Detected; U Cocaine Screen Not Detected; U Methadone Screen Not Detected; U Methamphetamine Screen DETECTED; U Opiates Screen Not Detected; U Oxycodone Screen Not Detected; U Phencyclidine Screen Not Detected
[2025-07-19 06:57] LABS: Alanine Aminotransfer (ALT/SGP 39.0 U/L (12-78); Albumin, Blood 3.9 g/dL (3.4-5.0); Albumin/Globulin Ratio 1.1 (0.8-1.8); Anion Gap 11.0 mmol/L (3-11); Aspartate Aminotrans (AST/SGOT 59.0 U/L (12-37); Bilirubin, Total 1.1 mg/dL (0.1-1.0); Blood Urea Nitrogen 15.0 mg/dL (8-24); CO2, Blood 21.0 mmol/L (21-32); Calcium, Blood 8.8 mg/dL (8.5-10.1); Chloride, Blood 109.0 mmol/L (98-108); Creatinine, Blood 0.8 mg/dL (0.60-1.20); Globulin, Blood 3.5 g/dL (2.2-4.0); Glucose, Blood 73.0 mg/dL (70-99); Potassium, Blood 3.5 mmol/L (3.5-5.5); Sodium, Blood 137.0 mmol/L (136-145); Total Protein, Blood 7.4 g/dL (6.4-8.2)
[2025-07-19] MEDS ORDERED: Insulin Human Lispro 100 Units/ML 3ML Syringe SC SCH (07:30)
[2025-07-19 07:39] LABS: Anti-Xa UFH, PHA Monitoring <0.10 IU/mL
[2025-07-19 07:41] VITALS: BP 163/97
[2025-07-19] MEDS ORDERED: Heparin Sodium,Porcine/0.5 NS 500 ML IV SCH (07:55)
[2025-07-19] MEDS ORDERED: NS 250 ML IV PRN (08:25)
[2025-07-19] MEDS ORDERED: ACYC200 PO (12:57)
[2025-07-19] MEDS ORDERED: TRAZ50 PO (12:58)
[2025-07-19] MEDS ORDERED: PANTOPRAZOLE SO40 M2 PO (12:58)
[2025-07-19] MEDS ORDERED: JANTOVEN6 MG PO (13:05)
[2025-07-19] MEDS ORDERED: HYDROcodone 5-APAP 325 TAB PO PRN (13:40)
[2025-07-19 15:46] VITALS: BP 152/80
[2025-07-19] MEDS ORDERED: Dose Adjust by Pharmacy XX STA (16:05)
[2025-07-19] MEDS ORDERED: Heparin Sodium 5000 Units/ML 1ML MDV IV ONE (16:10)
--- NOTE | 2025-07-19 20:12 | NUR ---
SHIFT SUMMARY PT STARTED ON HEPARIN GTT, WO BRIDGE BACK ON TO ORAL COUMADIN. PRN IV FENT 50 MCG GIVEN TWICE THIS SHIFT AND PRN NORCO WAS ORDERED BY DR. YEBOAH AND ADMINISTERED ONCE WITH REPORTED RELIEF FROM BOTH. PHYSICAL THERAPY ATTEMPTED TO WORK WITH PT BUT WAS LIMITED DUE TO PAIN. PT REMAINS BEDREST AND PILLOW PROVIDED TO SPLINT CHEST WITH PASSIVE MOVEMENT PT IS NOT EAGER TO MOVE INDEPENDENTLY. IV ANTIBIOTICS ADMINSITERED ORDERED. NS BAG THAT WAS ORDERED LAST NIGHT INFUSED TO COMPLETTION. PLAN TO CONTINUE SUPPORTIVE THERAPIES, AND SHAREHOLDER CONSULTED ON DISCHARGE PLANNING PT IS UNHOUSED. PT HAS BEEN URINATING INDEPENDENTLY VIA URINAL. EDUCATED PT ON INCENTIVE SPIROMETER BUT HE IS NOT WILLING TO USE TODAY.
[2025-07-19 20:54] VITALS: BP 137/74
[2025-07-19 23:28] VITALS: BP 148/87
[2025-07-20] MEDS ORDERED: Clarify Drug Order XX ONE ×2 (00:50→06:50)
[2025-07-20 04:35] VITALS: BP 168/94
--- NOTE | 2025-07-20 06:03 | NUR ---
SHIFT SUMMARY- PT CONTINUED TO HAVE UNCONTROLLED PAIN. MID SHIFT HE GOT CONFUSED, TRIED TO GET UP AND PULLED HIS IV OUT AND LOST HIS BOWEL. NEW IV PLACED. PT IS ON HEPARIN DRIP. POSS SURGICAL CONSULT TOMORROW THAT HAS NOT BEEN ENTERED INTO AN ORDER. HS BLOOD SUGAR DID NOT NEED COVERAGE. AMBULATION- WAS TOO PAINFUL TO GET OUT OF BED. ELIMINATION- BEDSIDE URINAL MEDICATION- WWW
[2025-07-20 06:05] LABS: Hematocrit 35.0 % (37.0-53.0); Hemoglobin 11.8 g/dL (13.5-17.5); Mean Corpuscular HGB Conc 33.7 g/dL (31.5-36.5); Mean Corpuscular Volume 89 fL (80-100); NRBC ABSOLUTE 0.00 K/mm3 (0.00-0.02); NRBC Auto 0.0 /100 WBC (0.0-0.2); Platelet Count 187 K/mm3 (150-400); RDW Coefficient Variation 13.6 % (11.7-14.2); RDW Standard Deviation 44.1 fL (35.1-46.3)
[2025-07-20 06:22] LABS: Anti-Xa UFH, PHA Monitoring 0.37 IU/mL; Prothrombin Time Results 11.7 Sec (9.7-11.5)
[2025-07-20 07:25] VITALS: BP 153/84
[2025-07-20] MEDS ORDERED: HYDROcodone 5-APAP 325 TAB PO PRN (07:45)
[2025-07-20] MEDS ORDERED: MetFORMIN HCl 500 mg PO SCH (08:00)
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
[2025-07-20 14:09] VITALS: BP 131/77
--- NOTE | 2025-07-20 15:27 | NUR ---
SHIFT SUMMARY MR HOOVER IS ORIENTATED X4. TALKATIVE, RAMBLING CONVERSATION. CONSULTED TO DR MONAE WITH PSYCHIATARY. AMBULATORY IN HALLS WITH A STEADY GAIT. HEPARIN GTT AT 19U/KG/HR CONTINUOUS. HE DID PULL OUT ONE PIV EARLIER THIS SHIFT, SECOND PIV REPLACED. ON TELEMETRY - IN AND OUT OF VENTRICULAR BIGEMINY - DR YEBOAH NOTIFIED. C/O PAIN TO RIGHT SHOULDER, RIBS, HEAD AND FEET, MEDICATED WITH NORCO 1-2 TABLETS REGULARLY. IN THE CHAIR, CALL LIGHT IN REACH.
[2025-07-20 15:45] VITALS: BP 125/70
--- NOTE | 2025-07-20 18:20 | NUR ---
MD CALL MR HOOVER C/O ITCHING TO BUTTOCKS AND BACK OF LEGS. NO SCRATCHES, HIVES OR REDNESS SEEN AT TIME OF ASSESSMENT THIS AFTERNOON. ALSO C/O DRY EYES AND RIGHT CHRONIC AND ACUTE SHOULDER PAIN. DR YEBOAH NOTIFIED AND AWAITING NEW ORDERS.
[2025-07-20 20:54] VITALS: BP 143/77
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
--- NOTE | 2025-07-20 23:11 | NUR ---
CLINICAL APPEALS RN TO ROOM TO TAKE PT REPORT PER PT REQUEST.
[2025-07-21 00:22] VITALS: BP 115/59
[2025-07-21 04:20] VITALS: BP 143/74
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
[2025-07-21 06:41] LABS: Hematocrit 33.0 % (37.0-53.0); Hemoglobin 11.0 g/dL (13.5-17.5); Platelet Count 192 K/mm3 (150-400)
[2025-07-21 07:04] LABS: Anti-Xa UFH, PHA Monitoring 0.35 IU/mL; Prothrombin Time Results 14.6 Sec (9.7-11.5)
[2025-07-21] MEDS ORDERED: Dose Adjust by Pharmacy XX STA (07:38)
[2025-07-21 07:50] VITALS: BP 166/91
[2025-07-21 08:56] LABS: Anion Gap 8.0 mmol/L (3-11); Blood Urea Nitrogen 17.0 mg/dL (8-24); CO2, Blood 23.0 mmol/L (21-32); Calcium, Blood 8.8 mg/dL (8.5-10.1); Chloride, Blood 111.0 mmol/L (98-108); Creatinine, Blood 0.76 mg/dL (0.60-1.20); Glucose, Blood 140.0 mg/dL (70-99); Magnesium, Blood 1.6 mg/dL (1.6-2.4); Potassium, Blood 4.0 mmol/L (3.5-5.5); Sodium, Blood 138.0 mmol/L (136-145)
--- NOTE | 2025-07-21 09:49 | NUR ---
DR YEBOAH ROUNDED ON PATIENT, PT TELLS DR YEBOAH HE IS NOT WILLING TO GO TO [place] AND WILL CALL HIS MOM TO SEE IF HE CAN GO BACK TO HER HOME. CASE MANAGEMENT TO FOLLOW UP FOR DISCHARGE PLANNING PER DR YEBOAH
[2025-07-21] MEDS ORDERED: DiphenhydrAMINE HCL/Zinc Acet Cream TOP PRN (11:30)
[2025-07-21] MEDS ORDERED: Dextran/Hypromellose/Glycerin 15 DROP/ML BTL BOTHEYES PRN (11:30)
[2025-07-21 11:41] VITALS: BP 119/58
[2025-07-21 15:55] VITALS: BP 128/79
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
--- NOTE | 2025-07-21 18:31 | NUR ---
PT ARRIVED FROM ER AT APPROX 1430. PT IS PLEASANT AND COOPERTIVE WITH CARE. A/OX4. INDEPENDENT IN ROOM. PT ORIENTED TO ROOM/USE OF CALL LIGHT. PT IS CURRENTLY SITTING UP IN CHAIR ON HIS LAPTOP. DENIES CURRENT C/P OR PRESSURE. REPORTS NO ACUTE NEEDS AT THIS TIME.
[2025-07-21 20:01] VITALS: BP 164/86
[2025-07-22] VITALS (7 sets, daily range): BP systolic 104–146; BP diastolic 63–88
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
[2025-07-22 07:10] LABS: Hematocrit 33.5 % (37.0-53.0); Hemoglobin 10.9 g/dL (13.5-17.5); Platelet Count 200 K/mm3 (150-400)
[2025-07-22 07:24] LABS: Anti-Xa UFH, PHA Monitoring 0.31 IU/mL; Prothrombin Time Results 24.3 Sec (9.7-11.5)
[2025-07-22 14:35] LABS: Prothrombin Time Results 25.1 Sec (9.7-11.5)
--- NOTE | 2025-07-22 20:15 | NUR ---
SHIFT SUMMARY- PT IN THE RECLINER, SITTING UP, REPORT COMPLETED WITH NIGHT RN. PT MEDS LATE THE PT WAS IN THE SHOWER WHEN THIS RN ATTEMPTED TO GIVE THEM. PT IS SITTING UP, CALL LIGHT IN REACH NO S&S OF DISTRESS NOTED.
[2025-07-23 00:32] VITALS: BP 149/86
[2025-07-23 04:19] VITALS: BP 138/72
[2025-07-23 06:36] LABS: Hematocrit 33.5 % (37.0-53.0); Hemoglobin 11.0 g/dL (13.5-17.5); Mean Corpuscular HGB Conc 32.8 g/dL (31.5-36.5); Mean Corpuscular Volume 92 fL (80-100); NRBC ABSOLUTE 0.00 K/mm3 (0.00-0.02); NRBC Auto 0.0 /100 WBC (0.0-0.2); Platelet Count 246 K/mm3 (150-400); RDW Coefficient Variation 13.9 % (11.7-14.2); RDW Standard Deviation 47.1 fL (35.1-46.3)
[2025-07-23 06:54] LABS: Prothrombin Time Results 20.4 Sec (9.7-11.5)
[2025-07-23 07:32] VITALS: BP 145/89
[2025-07-23] MEDS ORDERED: Enoxaparin 80 MG/0.8 ML SYR SC SCH (09:00)
[2025-07-23 09:35] VITALS: BP 141/70
[2025-07-23 15:56] VITALS: BP 140/78
[2025-07-23 17:35] LABS: Prothrombin Time Results 23.7 Sec (9.7-11.5)
[2025-07-23 19:55] VITALS: BP 140/74
[2025-07-24 04:24] VITALS: BP 143/84
[2025-07-24 06:26] LABS: Prothrombin Time Results 23.9 Sec (9.7-11.5)
[2025-07-24 07:14] VITALS: BP 138/93
--- NOTE | 2025-07-24 07:54 | NUR ---
SHIFT SUMMARY PATIENT A&OX4, ABLE TO MAKE NEEDS KNOWN, ALTHOUGH DOES LIKE HIS NEEDS MET IMMEDIATELY, ABLE TO BE DIRECTED. PATIENT CAN BE FORGETFUL AT TIMES AND HAD PARANOIA AND DELUSIONS AT START AND END OF SHIFT. PATIENT SLEPT WELL T/O SHIFT. CALL LIGHT WITHIN REACH, ABLE TO MAKE NEEDS KNOWN, CALL LIGHT WITHIN REACH. NO DISTRESS NOTED
[2025-07-24 15:20] VITALS: BP 107/96
--- NOTE | 2025-07-24 18:57 | NUR ---
END OF SHIFT NOTE PATIENT RESTING IN CHAIR AT BEDSIDE A&O4, ABLE TO MAKE NEEDS KNOWN. ASKED FOR MANY SNACKS TODAY AND DRINKS. MADE MANY CALLS TO OUTSIDE PEOPLE INCLUDING [employer]ARCH AND [employer] AND LIFE [employer] ASKING TO SET UP JOB INTERVIEWS AND THINGS. PATIENT COOPERATIVE WITH CARE AND CALM TODAY WITH STAFF. SHOWERED TWICE ON THIS SHIFT. NO OTHER CONCERNS FOR THIS SHIFT.
[2025-07-24 19:55] VITALS: BP 113/55
[2025-07-25 02:05] VITALS: BP 130/82
[2025-07-25 05:41] LABS: Prothrombin Time Results 32.1 Sec (9.7-11.5)
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
[2025-07-25 08:15] VITALS: BP 152/96
[2025-07-25] MEDS ORDERED: LOSA50 PO (13:26)
[2025-07-25] MEDS ORDERED: DIVA500EC PO (13:28)
[2025-07-25] MEDS ORDERED: TUMS500 MG PO (13:28)
[2025-07-25 15:31] VITALS: BP 149/90
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
== END 2025-07-25 17:36 | disposition home or self-care (01) | DRG 200 ==
LOC: ER 23:44 → MEDS 23:45
PROVIDERS: Emergency Medicine; Internal Medicine; ADMIT Internal Medicine
DX: S27.0XXA Traumatic pneumothorax, initial encounter (principal); F30.10 Manic episode without psychotic symptoms, unspecified; S22.42XA Multiple fractures of ribs, left side, initial encounter for closed fracture; Z59.02 Unsheltered homelessness; Y04.2XXA Assault by strike against or bumped into by another person, initial encounter; E11.9 Type 2 diabetes mellitus without complications; I10 Essential (primary) hypertension; E86.0 Dehydration; F15.10 Other stimulant abuse, uncomplicated; S00.83XA Contusion of other part of head, initial encounter; K21.9 Gastro-esophageal reflux disease without esophagitis; Z95.2 Presence of prosthetic heart valve; Z79.01 Long term (current) use of anticoagulants; Z88.8 Allergy status to other drugs, medicaments and biological substances; Z79.84 Long term (current) use of oral hypoglycemic drugs; Z95.1 Presence of aortocoronary bypass graft; Z86.73 Personal history of transient ischemic attack (TIA), and cerebral infarction without residual deficits
CPT/HCPCS: 36415; 70450; 70486; 71045; 71260; 72125; 74177; 80048; 80053; 82947; 83036; 83735; 83880; 85014; 85018; 85025; 85027; 85049; 85520; 85610; 85730; 93005; 93010; 96361; 96365; 96374; 96375; 96376; 97110; 97116; 97129; 97162; 97165; 97530; 99285; A9270; G0378; J0690; J1644; J1650; J2405; J3010; J7030; J7050; Q9967

== ENCOUNTER 2025-07-28 20:44 | Inpatient (IN) | payer OTHER ==
[~2025-07-28] VITALS: Ht 175.3 cm; Wt 74.1 kg
[~2025-07-28 20:44] MED LIST changes: +DIVA500EC PO; +LOSA50 PO; +TUMS500 MG PO
[2025-07-28] MEDS ORDERED: Ketorolac Tromethamine 15mg Vial IV ONE (21:00)
[2025-07-28 21:18] LABS: BASOPHILS ABSOLUTE AUTO 0.10 K/mm3 (0.00-0.23); BASOPHILS PERCENT AUTO 1 % (0-2); EOSINOPHILS ABSOLUTE AUTO 0.16 K/mm3 (0.00-0.68); EOSINOPHILS PERCENT AUTO 2 % (0-6); Hematocrit 31.9 % (37.0-53.0); Hemoglobin 10.4 g/dL (13.5-17.5); IMMATURE GRAN ABSOLUTE AUTO 0.02 K/mm3 (0.00-0.10); IMMATURE GRAN PERCENT AUTO 0 % (0-1); LYMPHOCYTES ABSOLUTE AUTO 1.49 K/mm3 (0.84-5.20); LYMPHOCYTES PERCENT AUTO 16 % (21-46); MONOCYTES ABSOLUTE AUTO 0.92 K/mm3 (0.16-1.47); MONOCYTES PERCENT AUTO 10 % (4-13); Mean Corpuscular HGB Conc 32.6 g/dL (31.5-36.5); Mean Corpuscular Volume 91 fL (80-100); NEUTROPHILS ABSOLUTE AUTO 6.67 K/mm3 (1.96-9.15); NEUTROPHILS PERCENT AUTO 71 % (41-73); NRBC ABSOLUTE 0.00 K/mm3 (0.00-0.02); NRBC Auto 0.0 /100 WBC (0.0-0.2); Platelet Count 330 K/mm3 (150-400); RDW Coefficient Variation 13.9 % (11.7-14.2); RDW Standard Deviation 46.3 fL (35.1-46.3)
[2025-07-28 21:39] LABS: Alanine Aminotransfer (ALT/SGP 24.0 U/L (12-78); Albumin, Blood 3.7 g/dL (3.4-5.0); Albumin/Globulin Ratio 0.9 (0.8-1.8); Anion Gap 11.0 mmol/L (3-11); Aspartate Aminotrans (AST/SGOT 34.0 U/L (12-37); Bilirubin, Total 0.8 mg/dL (0.1-1.0); Blood Urea Nitrogen 29.0 mg/dL (8-24); CO2, Blood 21.0 mmol/L (21-32); Calcium, Blood 9.0 mg/dL (8.5-10.1); Chloride, Blood 110.0 mmol/L (98-108); Creatinine, Blood 0.85 mg/dL (0.60-1.20); Globulin, Blood 4.1 g/dL (2.2-4.0); Glucose, Blood 85.0 mg/dL (70-99); Potassium, Blood 3.9 mmol/L (3.5-5.5); Sodium, Blood 138.0 mmol/L (136-145); Total Protein, Blood 7.8 g/dL (6.4-8.2)
[2025-07-28] MEDS ORDERED: FLU VACC TS2025-26(6MOS UP)/PF 45 MCG/0.5 ML SYRINGE IM SCH (23:50)
[2025-07-28] MEDS ORDERED: Ondansetron HCl 2 MG / ML 2ML Vial IV PRN (23:55)
[2025-07-29 00:12] LABS: Prothrombin Time Results 13.7 Sec (9.7-11.5)
[2025-07-29 00:28] LABS: Magnesium, Blood 2.3 mg/dL (1.6-2.4); Thyroid Stimulating Hormone 2.29 uIU/mL (0.360-4.800)
[2025-07-29 01:00] LABS: BASOPHILS ABSOLUTE AUTO 0.07 K/mm3 (0.00-0.23); BASOPHILS PERCENT AUTO 1 % (0-2); EOSINOPHILS ABSOLUTE AUTO 0.24 K/mm3 (0.00-0.68); EOSINOPHILS PERCENT AUTO 3 % (0-6); Hematocrit 30.4 % (37.0-53.0); Hemoglobin 10.0 g/dL (13.5-17.5); IMMATURE GRAN ABSOLUTE AUTO 0.02 K/mm3 (0.00-0.10); IMMATURE GRAN PERCENT AUTO 0 % (0-1); LYMPHOCYTES ABSOLUTE AUTO 1.66 K/mm3 (0.84-5.20); LYMPHOCYTES PERCENT AUTO 21 % (21-46); MONOCYTES ABSOLUTE AUTO 0.84 K/mm3 (0.16-1.47); MONOCYTES PERCENT AUTO 11 % (4-13); Mean Corpuscular HGB Conc 32.9 g/dL (31.5-36.5); Mean Corpuscular Volume 92 fL (80-100); NEUTROPHILS ABSOLUTE AUTO 4.93 K/mm3 (1.96-9.15); NEUTROPHILS PERCENT AUTO 64 % (41-73); NRBC ABSOLUTE 0.00 K/mm3 (0.00-0.02); NRBC Auto 0.0 /100 WBC (0.0-0.2); Platelet Count 286 K/mm3 (150-400); RDW Coefficient Variation 13.8 % (11.7-14.2); RDW Standard Deviation 46.5 fL (35.1-46.3)
[2025-07-29 01:18] LABS: Alanine Aminotransfer (ALT/SGP 23.0 U/L (12-78); Albumin, Blood 3.5 g/dL (3.4-5.0); Albumin/Globulin Ratio 0.9 (0.8-1.8); Anion Gap 11.0 mmol/L (3-11); Aspartate Aminotrans (AST/SGOT 26.0 U/L (12-37); Bilirubin, Total 0.7 mg/dL (0.1-1.0); Blood Urea Nitrogen 32.0 mg/dL (8-24); CO2, Blood 20.0 mmol/L (21-32); Calcium, Blood 9.0 mg/dL (8.5-10.1); Chloride, Blood 111.0 mmol/L (98-108); Creatinine, Blood 0.92 mg/dL (0.60-1.20); Globulin, Blood 3.8 g/dL (2.2-4.0); Glucose, Blood 88.0 mg/dL (70-99); Magnesium, Blood 2.4 mg/dL (1.6-2.4); Potassium, Blood 3.5 mmol/L (3.5-5.5); Sodium, Blood 138.0 mmol/L (136-145); Total Protein, Blood 7.3 g/dL (6.4-8.2)
[2025-07-29 02:07] VITALS: BP 165/86
[2025-07-29 02:48] LABS: Anti-Xa UFH, PHA Monitoring <0.10 IU/mL
[2025-07-29] MEDS ORDERED: Dose Adjust by Pharmacy XX STA ×3 (03:03→18:48)
[2025-07-29] MEDS ORDERED: Heparin Sodium,Porcine/0.5 NS 500 ML IV SCH (03:05)
[2025-07-29 03:56] VITALS: BP 133/61
[2025-07-29 06:06] LABS: Prothrombin Time Results 13.9 Sec (9.7-11.5)
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
[2025-07-29 07:54] VITALS: BP 137/79
--- NOTE | 2025-07-29 09:00 | NUR ---
pt sitting up on the side of the bed with his lines completely tangled up, this was fixed, he speaks fast and is telling this nurse all the different medical things he needs, bed alarm activated as he is in a manic state, putting on his clothes and moving around the room, asked for tylenol this am for chest pain, this was given and said it took the pain away, lungs are clear t/o, resp even and unlabored, on r/a, hrr, tele in place running sb to sr per monitor, see strip, no edema noted, ppp+2, cap refill <3 sec, vs stable, afebrile, piv to lfa infusing hepering gtt as ordered, btx4, abd flat soft nontender, voids via urinal, skin c/w/d, ibeth magallon, call light in reach.
[2025-07-29] MEDS ORDERED: Heparin Sodium 5000 Units/ML 1ML MDV IV ONE ×2 (11:15→18:50)
[2025-07-29 14:40] VITALS: BP 132/63
--- NOTE | 2025-07-29 15:39 | NUR ---
pt is continually getting oob, will be moving to the scu when bed availabel. call light in reach.
--- NOTE | 2025-07-29 16:46 | NUR ---
pt has been walked to 346, report was given to Iman REED, all belongings went with him.
[2025-07-29 17:55] VITALS: BP 138/74
[2025-07-29 19:46] VITALS: BP 106/67
--- NOTE | 2025-07-29 19:57 | NUR ---
LATE ENTRY: PT TRANSFERRED FROM RM 329 TO RM 346. RN RECEIVED REPORT FROM DEREK ACEVEDO. ROOM AIR. IV HEPARIN INFUSING INTO PT'S LEFT WRIST. PT IS IMPULSIVE, AND PACING THE OBRIEN. ATTEMPTING TO OPEN AND LOOK IN SUPPLY CABINETS, RN EDUCATED PT HE CANNOT OPEN THE CABINETS. PT IS RESTLESS, MOVING FREQUENTLY. HE HAS A GOOD APPETITE, AND EATS ALL HIS DINNER, ASKS FOR MORE SNACKS. HE HAS SOME GRANDIOSE IDEAS, TELLING STAFF ABOUT HOW MUCH MONEY HE HAS, ETC. HE HAS A COUGH, PRODUCTIVE OF CLEAR SPUTUM. PT REPORTS BLOOD IN SPUTUM, RN DOESN'T SEE ANY BLOOD. FREQUENT MONITORING FOR SAFETY.
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
[2025-07-30 02:29] LABS: BASOPHILS ABSOLUTE AUTO 0.06 K/mm3 (0.00-0.23); BASOPHILS PERCENT AUTO 1 % (0-2); EOSINOPHILS ABSOLUTE AUTO 0.46 K/mm3 (0.00-0.68); EOSINOPHILS PERCENT AUTO 9 % (0-6); Hematocrit 30.4 % (37.0-53.0); Hemoglobin 10.2 g/dL (13.5-17.5); IMMATURE GRAN ABSOLUTE AUTO 0.02 K/mm3 (0.00-0.10); IMMATURE GRAN PERCENT AUTO 0 % (0-1); LYMPHOCYTES ABSOLUTE AUTO 1.45 K/mm3 (0.84-5.20); LYMPHOCYTES PERCENT AUTO 27 % (21-46); MONOCYTES ABSOLUTE AUTO 0.61 K/mm3 (0.16-1.47); MONOCYTES PERCENT AUTO 12 % (4-13); Mean Corpuscular HGB Conc 33.6 g/dL (31.5-36.5); Mean Corpuscular Volume 89 fL (80-100); NEUTROPHILS ABSOLUTE AUTO 2.71 K/mm3 (1.96-9.15); NEUTROPHILS PERCENT AUTO 51 % (41-73); NRBC ABSOLUTE 0.00 K/mm3 (0.00-0.02); NRBC Auto 0.0 /100 WBC (0.0-0.2); Platelet Count 249 K/mm3 (150-400); RDW Coefficient Variation 13.5 % (11.7-14.2); RDW Standard Deviation 44.1 fL (35.1-46.3)
[2025-07-30 02:52] LABS: Prothrombin Time Results 18.2 Sec (9.7-11.5)
[2025-07-30] MEDS ORDERED: Clarify Drug Order XX ONE (03:55)
[2025-07-30] MEDS ORDERED: Artificial Tear Opth Oint 3.5 GM BOTHEYES SCH (04:00)
[2025-07-30 04:17] VITALS: BP 138/83
--- NOTE | 2025-07-30 06:36 | NUR ---
SHIFT SUMMARY PATIENT ALERT AND ORIENTED X4. PATIENT CAN BE AGGRESSIVE WITH CARE. PATIENT SWUNG HIS TELE BOX AT THIS RN DURING CARE. PATIENT IS RESTLESS IN ROOM KEPT ON CHANGING HIS CLOTHES, COLLECTING TRASH AND PUTTING IT IN PLASTIC BAG, PATIENT STATES DON T TAKE THOSE FOR ME TO TAKE HOME. PATIENT YELLS AND DOES NOT USE CALL LIGHT. COMPLAINT OF PAIN IN RIB FX AND ABDOMEN, PATIENT REQUESTED BINDER AND PLACED, REPORTSHELPING WITH PAIN CONTROL. MEDICATION ADMINISTERED PER EMAR - NICOTINE PATCH IN PLACE. DENIES SOB AND CP. PATIENT HAND OVER PERSONAL VAPE, PLACED IN PATIENTS LOCKED DRAWER. SELF-REPOSITIONED THROUGHOUT SHIFT. BED LOCKED AND IN LOWEST POSITION. CALL LIGHT WITHIN REACH.
[2025-07-30 12:32] VITALS: BP 114/79
[2025-07-30 17:07] VITALS: BP 181/158
[2025-07-30 17:08] VITALS: BP 144/69
--- NOTE | 2025-07-30 19:11 | NUR ---
PT IS A&0 X 2-3, TO SELF, LOCATION, YEAR, WITH GRANDIOSE IDEAS AND TANGENTIAL THOUGHTS. VERY TALKATIVE. PACES THE OBRIEN. HE WAS REPEATEDLY REMINDED BY STAFF TODAY TO NOT TOUCH THE HOSPITAL EQUIPMENT IN THE CABINETS, OR TO REMOVE THINGS FROM THE GARBAGE. HEPARIN INFUSING TO IV IN THE LFA AT 31.1ML/HR. TELEMETRY: SINUS IN THE 70'S. DR. YEBOAH ROUNDED WITH THE PATIENT. PLAN: 1-2 DAYS, CASE MANAGEMENT IS INVOLVED.
--- NOTE | 2025-07-30 22:14 | NUR ---
C/O CHEST PAIN- PATIENT IS CALLING OUT FROM THE ROOM SAYING HE FELT LIKE HE WAS HAVING ANOTHER HEART ATTACK. CALL TO WATER/WASTEWATER ENGINEER WITH SINUS RHYTHM. VITALS STABLE. MAY BE PREVIOUS BROKEN RIBS CAUSING PAIN. HE IS REQUESTING PAIN MEDS. I WILL LET HIS RN KNOW.
[2025-07-30 22:16] VITALS: BP 135/75
[2025-07-30 23:49] VITALS: BP 142/77
[2025-07-31 03:37] LABS: BASOPHILS ABSOLUTE AUTO 0.03 K/mm3 (0.00-0.23); BASOPHILS PERCENT AUTO 1 % (0-2); EOSINOPHILS ABSOLUTE AUTO 0.41 K/mm3 (0.00-0.68); EOSINOPHILS PERCENT AUTO 8 % (0-6); Hematocrit 29.7 % (37.0-53.0); Hemoglobin 9.9 g/dL (13.5-17.5); IMMATURE GRAN ABSOLUTE AUTO 0.02 K/mm3 (0.00-0.10); IMMATURE GRAN PERCENT AUTO 0 % (0-1); LYMPHOCYTES ABSOLUTE AUTO 1.55 K/mm3 (0.84-5.20); LYMPHOCYTES PERCENT AUTO 30 % (21-46); MONOCYTES ABSOLUTE AUTO 0.45 K/mm3 (0.16-1.47); MONOCYTES PERCENT AUTO 9 % (4-13); Mean Corpuscular HGB Conc 33.3 g/dL (31.5-36.5); Mean Corpuscular Volume 91 fL (80-100); NEUTROPHILS ABSOLUTE AUTO 2.73 K/mm3 (1.96-9.15); NEUTROPHILS PERCENT AUTO 53 % (41-73); NRBC ABSOLUTE 0.00 K/mm3 (0.00-0.02); NRBC Auto 0.0 /100 WBC (0.0-0.2); Platelet Count 238 K/mm3 (150-400); RDW Coefficient Variation 13.7 % (11.7-14.2); RDW Standard Deviation 45.6 fL (35.1-46.3)
[2025-07-31 03:54] LABS: Prothrombin Time Results 25.8 Sec (9.7-11.5)
[2025-07-31 04:56] VITALS: BP 133/76
--- NOTE | 2025-07-31 06:36 | NUR ---
SHIFT SUMMARY PATIENT ALERT AND ORIENTED X 3-4. PATIENT HAS AN UNPREDICTABLE BEHAVIOR, IMPULSIVE. PATIENT IS RESTLESS AND VANDALIZED ROOM, PATIENT STATES HE WAS HALLUCINATING AND THOUGHT HE WAS OUTSIDE. PATIENT YELLS AND DOES NOT USE CALL LIGHT. COMPLAINT OF PAIN IN RIB FX AND ABDOMEN, MEDICATION ADMINISTERED PER EMAR. THIS NURSE DID NOT REASSES NICOTINE PATCH WHEN ITS DUE SINCE THE NEXT ONE IS NOT DUE UNTIL 0900, CHARGE NURSE BAILEY AWARE. DENIES SOB AND CP. PATIENT INDEPENDENT IN ROOM. AT 0330, PATIENT WANTED TO LEAVE AMA. CHARGE NURSE BAILEY CONFIRMING IF HE WANTED TO LEAVE, PATIENT CHANGED HIS MIND WHEN HE REALIZED THAT THE STORE/BANK HE WANTS TO GO TO ARE STILL CLOSED. HE STATES THAT HE WILL LEAVE WHEN THEY ARE OPEN. BED LOCKED AND IN LOWEST POSITION. CALL LIGHT WITHIN REACH.
[2025-07-31 07:44] VITALS: BP 136/91
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
--- NOTE | 2025-07-31 14:28 | NUR ---
DISCHARGE REVIEWED WITH PT. VERBALIZED UNDERSTANDING MEDS AND INST. NO NEW MEDS. IV PULLED BY AIDE. TELE REMOVED AND RETURNED TO [employer]. PEND TAXI/
--- NOTE | 2025-07-31 15:13 | NUR ---
DISCHARGE REVIEWED WITH PT. IV AND TLE REMOVED BY AIDE. PT VERBALIZED UNDERSTANDING MEDS AND ISNT. NO NEW MEDS. HE STATES WANTS TO WALK OUT DOOR. I WALKED PT TO DOOR AT 1510
== END 2025-07-31 15:00 | disposition home or self-care (01) | DRG 183 ==
LOC: ER 20:44 → MEDS 20:45 → ENPENDDIS 07-31 13:48 → MEDS 07-31 15:00
PROVIDERS: Internal Medicine; Student in an Organized Health Care Education/Training Program; ADMIT Student in an Organized Health Care Education/Training Program
DX: S22.42XA Multiple fractures of ribs, left side, initial encounter for closed fracture (principal); I21.A1 Myocardial infarction type 2; F30.9 Manic episode, unspecified; Z59.02 Unsheltered homelessness; R79.89 Other specified abnormal findings of blood chemistry; R79.1 Abnormal coagulation profile; E11.9 Type 2 diabetes mellitus without complications; I10 Essential (primary) hypertension; D64.9 Anemia, unspecified; F15.11 Other stimulant abuse, in remission; T50.916A Underdosing of multiple unspecified drugs, medicaments and biological substances, initial encounter; Z91.138 Patient's unintentional underdosing of medication regimen for other reason; Z95.2 Presence of prosthetic heart valve; X83.8XXA Intentional self-harm by other specified means, initial encounter; Z86.73 Personal history of transient ischemic attack (TIA), and cerebral infarction without residual deficits; Z79.01 Long term (current) use of anticoagulants; Z95.1 Presence of aortocoronary bypass graft; Z91.148 Patient's other noncompliance with medication regimen for other reason; Z88.8 Allergy status to other drugs, medicaments and biological substances; Z79.84 Long term (current) use of oral hypoglycemic drugs
CPT/HCPCS: 36415; 71045; 80053; 83735; 84443; 84484; 85025; 85520; 85610; 85730; 93005; 93010; 94760; 94762; 96365; 96366; 96374; 96375; 99285-25; A9270; G0378; J1644; J1885